=== PATIENT | female | born 2000 | race American Indian/Alaskan Native ===

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

== ENCOUNTER 2022-03-31 05:59 | Day surgery (SDC) | payer OTHER ==
--- NOTE | 2022-03-29 08:37 | History and Physical Report ---
History of Present Illness Date of examination: 03/24/22 History of present illness: Patient has been reassessed/reevaluated. H&P has been reviewed. No interval changes. This is a 21 year old patient perineal laceration Patient desires definitive treatment ] Vital Signs: Patient Profile: 21 Years Old Female Height: 61 inches Weight: 126 pounds Temp: 98.0 degrees F BP sittin / 80 (left arm) Past History : 1 Term Births: 0 Premature Births: 0 Living Children: 1 Para: 1 Mult. Births: 0 Prev : 0 Aborta: 0 Elect. Ab: 0 Spont. Ab: 0 Ectopics: 0 # 1 Delivery date: 11/18/2021 Weeks Gestation: 38.3 Delivery type: Vaginal Hours of labor: 20 Anesthesia type: epidural Delivery location: [facility] Infant Sex: female weight: 7.06 Comments: intrauterine growth restriction, 3rd degree after delivery. Prolonged 2nd stage of labor. Infant transferred to NICU after delivery d/t retractions. required Revision of delivery lacerations repair Current Allergies (reviewed today): No known allergies Past Medical History: Negative Past Medical History Past Surgical History: Revision of delivery lacerations repair (12/01/2021) Family History Summary: MGM - Has Family History of Seizure Disorders - Entered On: 05/20/2021 MGM - Has Family History of Brain Cancer - Entered On: 05/20/2021 MGM - Has Family History of Diabetes - Entered On: 05/20/2021 MGM - Has Family History of CVA or Stroke - Entered On: 05/20/2021 Social History: Patient is single Smoking History: Patient has never smoked. 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 of genital herpes: no Partner hx. of genital herpes: no Hx of STD: none Review of Systems General Denies fever, chills, sweats, anorexia, fatigue, weakness, malaise, weight loss and sleep disorder. Complains of pelvic pain. Denies vaginal discharge, incontinence, dysuria, hematuria, urinary frequency, amenorrhea, menorrhagia, abnormal vaginal bleeding, genital sores, decreased libido, painful periods, painful sex, urinary urgency, hot flashes, vaginal dryness, vaginal itching and vaginal odor. CV Denies chest pains, palpitations, syncope, dyspnea on exertion, orthopnea, PND and peripheral edema. Resp Denies cough, dyspnea at rest, excessive sputum, hemoptysis, wheezing and pleurisy. GI Denies nausea, vomiting, diarrhea, constipation, change in bowel habits, abdominal pain, melena, hematochezia, jaundice, gas/bloating, indigestion/heartburn, dysphagia and odynophagia. Breast Denies left breast lump, right breast lump, nipple discharge, bloody discharge from nipple, breast pain, abnormal mammogram and breast enlargement. Psych Denies depression, anxiety, irritability and mood swings. Past History Past Medical History: other (See HPI) Past Surgical History: Other (See HPI) Social history: full code, other (See HPI) Family history: other (See HPI) Medications and Allergies Allergies Allergy/AdvReac Type Severity Reaction Status Date / Time No Known Allergies Allergy Verified 11/28/21 16:48 Home Medications Medication Instructions Recorded Confirmed Last Taken Type Multivitamin Tablet 1 tab PO PRN 08/29/21 12/01/21 11/30/21 09:00 History Docusate Sodium [Colace] 100 mg PO BID PRN #60 capsule 11/20/21 12/01/21 11/30/21 09:00 Rx Ferrous Sulfate [Feosol 325 MG tab] 325 mg PO BID #60 tablet 11/20/21 12/01/21 11/30/21 09:00 Rx Ibuprofen [Motrin] 800 mg PO Q8HR PRN #20 tablet 11/20/21 12/01/21 11/30/21 09:00 Rx Review of Systems Constitutional: other (See HPI) Exam - Physical Exam Narrative exam: HEENT: normocephalic, no lesions or deformities Skin no abnormal lesions or rashes CV: regular, normal S1-S2, no murmur, no rub, no gallop Abdomen: soft, nontender Musculoskeletal: grossly normal ROM in joints, no joint tenderness or muscle weakness Neuro: no gross anomalities Extremities: no discoloration or edema 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 Discussed the risks of bleeding, infection, , possible damage to bladder and bowel.Indications for and description of the procedure given. Questions answered. Patient agrees to proceed. (2) Refusal of blood product Current Visit: Yes Status: Acute
[2022-03-29 11:37] LABS: Hematocrit 37.3 % (30.3-42.9); Hemoglobin 12.9 gm/dl (10.1-14.3); Mean Corpuscular HGB Conc 35 % (30-34); Mean Corpuscular Volume 85 fl (79-97); Platelet Count 232 K/mm3 (140-440); Red Cell Distribution Width 14.9 % (13.2-15.2)
[2022-03-31] MEDS ORDERED: ACETAMINOPHEN 500 MG TAB PO SCH (06:00)
[2022-03-31] MEDS ORDERED: MIDAZOLAM 2 MG/2 ML INJ IV NR (06:00)
[2022-03-31] MEDS ORDERED: CELECOXIB 200 MG CAP PO NR (06:00)
[2022-03-31] MEDS ORDERED: GABAPENTIN 300 MG CAP PO NR (06:00)
[2022-03-31] MEDS ORDERED: SCOPOLAMINE TRANSDERMAL PATCH 72 HR TD NR (06:00)
[2022-03-31] MEDS ORDERED: LACTATED RINGERS 1,000 ML IV SCH (06:00)
[2022-03-31] MEDS ORDERED: BUPIVACAINE-EPINEPHRINE/PF 0.25%-1:200,000 (30 ML) VIAL INFILTRATI ONE (07:17)
[2022-03-31] MEDS ORDERED: dexAMETHasone 20 MG/5 ML VIAL ONE (07:19)
[2022-03-31] MEDS ORDERED: LIDOCAINE MPF (2%) 20 MG/1 ML VIAL 5 ML ONE (07:19)
[2022-03-31] MEDS ORDERED: MIDAZOLAM 2 MG/2 ML INJ ONE (07:20)
[2022-03-31] MEDS ORDERED: fentaNYL 100 MCG/2 ML INJ ONE (07:20)
[2022-03-31] MEDS ORDERED: propofoL 200 MG/20 ML VIAL IV ONE (07:20)
[2022-03-31] MEDS ORDERED: ONDANSETRON 4 MG/2 ML INJ IV PRN (07:38)
[2022-03-31] MEDS ORDERED: HYDROmorphone 0.5 MG/0.5 ML INJ IV PRN (07:38)
[2022-03-31] MEDS ORDERED: HYDROcodone/ACETAMINOPHEN 5-325 MG TAB PO PRN (07:38)
--- NOTE | 2022-03-31 07:38 | Anesthesia Day of Surgery ---
Anesthesia Day of Surgery - Day of Surgery Patient Examined: Yes Patient H&P Reviewed: Yes Patient is NPO: Yes
--- NOTE | 2022-03-31 07:38 | Anesthesia Consultation ---
Anesthesia Consult and Med Hx Date of service: 03/31/22 - Airway Anesthetic Teeth Evaluation: Good (loose left upper molar) ROM Head & Neck: Adequate Mental/Hyoid Distance: Adequate Mallampati Class: Class II Intubation Access Assessment: Probably Good - Pre-Operative Health Status ASA Pre-Surgery Classification: ASA1 Proposed Anesthetic Plan: General - Pulmonary Hx Smoking: No Hx Respiratory Symptoms: No - Cardiovascular System Hx Hypertension: No - Central Nervous System CVA: No - Endocrine Hx Renal Disease: No Hx Liver Disease: No Hx Insulin Dependent Diabetes: No Hx Non-Insulin Dependent Diabetes: No Hx Thyroid Disease: No - Additional Comments Anesthesia Medical History Comments: No hx anesthetic complications.
[2022-03-31] MEDS ORDERED: SODIUM CHLORIDE 0.9% IRR 1,500 ML BOTTLE IR ONE (08:45)
[2022-03-31] MEDS ORDERED: KETOROLAC 30 MG/1 ML INJ ONE (08:59)
[2022-03-31] MEDS ORDERED: LACTATED RINGERS 1,000 ML ONE (08:59)
[2022-03-31] MEDS ORDERED: ONDANSETRON 4 MG/2 ML INJ ONE (08:59)
--- NOTE | 2022-03-31 09:07 | Discharge Summary ---
Short Stay Discharge Plan Activity: no restrictions Diet: regular Wound: open to air Additional Instructions: Patient to call office for any fever, chills, nausea, vomiting or pain not controlled by pain medication. Follow up with: PRIMARY CARE, [Primary Care Provider] - 7 Days Prescriptions: Ibuprofen [Motrin] 800 mg PO TID PRN #30 tablet PRN Reason: Pain Acetaminophen/Codeine [Tylenol #3] 1 tab PO Q6H PRN #8 tablet PRN Reason: Pain
--- NOTE | 2022-03-31 09:12 | Operative Report ---
Operative Report Operative Report: Date of procedure: March 31, 2022 Pre-operative diagnosis: Disruption of the flexor from wound Post-operative diagnosis: Same Procedure name(s): Revision of steps to go up trauma lesion with a posterior repair Surgeon: Anirudh Koch MD Procurement Professional Logistics: [] Anesthesia: General EBL: Minimal mL Complications: None Findings: Patient with separation perineum without granulation tissue present Specimen(s): None Procedure: The patient was brought operating room where general anesthesia was induced without difficulty. Patient was placed in dorsal lithotomy position prepped and draped in the usual sterile manner. Timeout was performed. Rubber catheter was used to empty her bladder. The findings as noted above. Incision was made removing the granulation tissue in the perineum. The resultant defect was closed in a running manner was started and the vagina reapproximated vaginal mucosa 10 inserted down to the perineum where the 2 sites were reapproximated subcuticular and finished with subcuticular stitch running of the perineum and into the 2 vagina. All instruments were removed patient was hemostatic. She was awakened in the operating room and accompanied to recovery room in good condition.
[2022-03-31 10:35] VITALS: BP 118/77
--- NOTE | 2022-03-31 12:01 | Post Anesthesia Evaluation ---
- Post Anesthesia Evaluation Patient Participated: Yes Airway Patent: Yes Stable Respiratory Function: Yes Nausea/Vomiting: No Temp > 96.8F: Yes Pain Manageable: Yes Adequeate Hydration: Yes Anesthesia Complications: No
== END 2022-03-31 10:10 | disposition home or self-care (01) ==
LOC: OR 05:59
PROVIDERS: ATTEND Obstetrics & Gynecology
DX: T81.30XA Disruption of wound, unspecified, initial encounter (principal); S31.41XA Laceration without foreign body of vagina and vulva, initial encounter; G43.909 Migraine, unspecified, not intractable, without status migrainosus; K21.9 Gastro-esophageal reflux disease without esophagitis; D64.9 Anemia, unspecified; Z20.822 Contact with and (suspected) exposure to COVID-19; Z79.899 Other long term (current) drug therapy; Z82.49 Family history of ischemic heart disease and other diseases of the circulatory system; Z83.3 Family history of diabetes mellitus; Z80.8 Family history of malignant neoplasm of other organs or systems; X58.XXXA Exposure to other specified factors, initial encounter; Y93.89 Activity, other specified; Y99.8 Other external cause status; Y92.89 Other specified places as the place of occurrence of the external cause; Y83.8 Other surgical procedures as the cause of abnormal reaction of the patient, or of later complication, without mention of misadventure at the time of the procedure
CPT/HCPCS: 36415; 57210; 84703; 85027; J1100; J1885; J2250; J2405; J2704; J3010; J3490; J7120; U0003